=== PATIENT | male | born 1965 | race Caucasian/White ===

== ENCOUNTER 2021-06-16 12:14 | Emergency (ER) | payer OTHER ==
[2021-06-16 14:45] LABS: BASOPHIL 0.6 % (0-2); EOSINOPHIL 2.1 % (0-5); HCT 44.7 % (42.0-52.0); HGB 15.2 g/dl (13.2-18.0); LYMPHOCYTE 29.5 % (15-48); MCH 31.1 pg (25.0-31.0); MCV 91.6 fL (78.0-100.0); MONOCYTE 9.7 % (0-12); MPV 9.3 fL (6.0-9.5); NEUTROPHIL 57.8 % (41-80); NRBC 0; PLT 285 K/uL (150-400); RBC 4.88 M/uL (4.70-6.00); RDW 13.2 % (11.5-14.0); WBC 7.2 K/uL (4.0-10.5)
[2021-06-16 14:56] LABS: INR 1.06 (0.9-1.2); PROTHROMBIN TIME 13.2 SECONDS (11.8-13.4)
[2021-06-16 15:17] LABS: BUN/CREAT RATIO (CALC) 13.3 RATIO; CREATININE 0.9 mg/dL (0.67-1.17); POTASSIUM 4.3 mmol/L (3.5-5.1)
== END 2021-06-16 16:43 | disposition home or self-care (01) ==
LOC: FER 12:14
PROVIDERS: Nurse Practitioner Family
DX: M79.671 Pain in right foot (principal); I10 Essential (primary) hypertension
CPT/HCPCS: 36415; 80048; 85025; 85610; 93005; 93971

== ENCOUNTER 2021-06-18 07:49 | Emergency (ER) | payer OTHER ==
[2021-06-18] MEDS ORDERED: MEDROL 4MG DOSEP4 MG PO (11:49)
[2021-06-18] MEDS ORDERED: NORCO 5-325 TA1 EACH PO (11:49)
== END 2021-06-18 12:12 | disposition home or self-care (01) ==
LOC: FER 07:49
DX: M43.17 Spondylolisthesis, lumbosacral region (principal); M54.16 Radiculopathy, lumbar region
CPT/HCPCS: 72131

== ENCOUNTER 2021-07-18 18:09 | Emergency (ER) | payer OTHER ==
[~2021-07-18 18:09] MED LIST: MEDROL 4MG DOSEP4 MG PO; NORCO 5-325 TA1 EACH PO
[2021-07-18] MEDS ORDERED: VIBRAMYCIN100 MG PO (19:50)
== END 2021-07-18 20:09 | disposition home or self-care (01) ==
LOC: FER 18:09
DX: L76.22 Postprocedural hemorrhage of skin and subcutaneous tissue following other procedure (principal); L03.115 Cellulitis of right lower limb; I10 Essential (primary) hypertension; F17.210 Nicotine dependence, cigarettes, uncomplicated
CPT/HCPCS: 99282